=== PATIENT | female | born 1955 | race Caucasian/White ===

== ENCOUNTER 2018-10-08 10:17 | Observation (INO) | payer OTHER ==
[~2018-10-08] VITALS: Ht 170.2 cm; Wt 122.5 kg
[2018-10-08] VITALS (16 sets, daily range): BP systolic 96–153; BP diastolic 54–84
--- NOTE | ~2018-10-08 | D ---
[address] [address] DISCHARGE SUMMARY Name: BRANDON PACHECO Room: [address] Liza Ron#: [id number] Admission: 10/08/18 Attend Phys: Aramis Finnegan MD Discharge: 10/09/18 Date of : 51 Report #: [id number] THIS REPORT FOR: //name// CC: Javed Finnegan DATE OF SERVICE: 10/09/2018 PRIMARY CARE PHYSICIAN: Javed Angel DO. FINAL DIAGNOSES: 1. Unstable angina. 2. Status post percutaneous coronary intervention to left anterior descending coronary artery. 3. Hypertension. 4. Tobacco use. 5. Peripheral vascular disease, status post right CEA. 6. Hyperlipidemia. HOSPITAL SUMMARY: The patient is a very pleasant 63-year-old woman who had been having some chest discomfort. She had numerous cardiovascular risk factors including peripheral vascular disease and prior carotid endarterectomy. Her perfusion stress test was unremarkable, but she had typical angina type symptoms and because of her body habitus, there was concern that it might have been a false negative study. She underwent a diagnostic cardiac catheterization and had isolated single vessel disease with a 70% stenosis in her proximal to mid left anterior descending coronary artery. She tolerated placement of a drug-eluting stent without complication. She had some upper back pain postprocedurally in the morning after her procedure, but no chest discomfort. Her LDL had been elevated in the office and I just switched her to generic Crestor 20 mg daily and this will be followed closely as an outpatient. Her discharge antiplatelet therapy will include aspirin and Brilinta. She will follow up with our office in 3 weeks. PROCEDURE PERFORMED: Diagnostic cardiac catheterization, percutaneous coronary intervention. PERTINENT DISCHARGE LABORATORY: Discharge creatinine is 0.8. Hemoglobin is 11.3, platelet count was 205,000. Sodium 134, potassium 3.9. By: 0912 0041Aramis Finnegan MD, FACC /nt
--- NOTE | ~2018-10-08 | H ---
[address] [address] HISTORY AND PHYSICAL Name: BRANDON PACHECO Room: [address] Liza Ron#: [id number] Admission: 10/08/18 Attend Phys: Aramis Finnegan MD Discharge: 10/09/18 Date of : 51 Report #: [id number] THIS REPORT FOR: //name// Please refer to the History and Physical performed in the physician's office. By: 1519Medical Records Staff FREDDIE /SHENG
[2018-10-08] MEDS ORDERED: LASIX 40 MG TAB40 M2 PO (10:32)
[2018-10-08] MEDS ORDERED: METFORMIN HCL500 MG PO (10:33)
[2018-10-08] MEDS ORDERED: NIFEDIPINE ER30 M1 PO (10:33)
[2018-10-08] MEDS ORDERED: OXYBUTYNIN 5 MG5 M2 PO (10:33)
[2018-10-08] MEDS ORDERED: LISINOPRIL40 MG PO (10:33)
[2018-10-08] MEDS ORDERED: PIOGLITAZONE15 MG PO (10:34)
[2018-10-08] MEDS ORDERED: POTASSIUM20 PO (10:34)
[2018-10-08] MEDS ORDERED: LUNESTA3 MG PO (10:34)
[2018-10-08] MEDS ORDERED: NITROGLYCERIN0.4 MG SUBLING (10:35)
[2018-10-08] MEDS ORDERED: TENORMIN50 MG PO (10:35)
[2018-10-08] MEDS ORDERED: FLEXERIL PO (10:35)
[2018-10-08] MEDS ORDERED: CRESTOR20 MG PO (10:35)
[2018-10-08 11:01] LABS: HEMATOCRIT 40.9 % (37.0-47.0); HEMOGLOBIN 13.7 gm/dL (12.0-15.0); MCH 29.8 pg (26.0-34.0); MCHC 33.5 g/dL (28.0-37.0); MPV 8.6 fl. (7.2-11.1); RBC 4.59 mil/uL (4.20-5.00); RDW-CV 14.2 % (10.5-14.5)
[2018-10-08 11:15] LABS: APTT 25.2 Seconds (25.0-31.3); INR 0.9; PROTIME 9.6 Seconds (9.20-11.50)
[2018-10-08 11:25] LABS: ALBUMIN 3.2 g/dL (3.4-5.0); ALKALINE PHOSPHATASE 117 U/L (46-116); ANION GAP 5 mmol/L (7-16); BUN 13 mg/dL (7-18); CALCIUM 8.8 mg/dL (8.5-10.1); CHLORIDE 100 mmol/L (98-107); CHOLESTEROL 224 mg/dL (<200); CO2 32 mmol/L (21-32); CREATININE 0.7 mg/dL (0.6-1.3); GLUCOSE 250 mg/dL (70-99); HDL CHOLESTEROL 58 mg/dL (>40); LDL CHOLESTEROL 134 mg/dL (<100); POTASSIUM 3.8 mmol/L (3.5-5.1); SGOT 9 U/L (15-37); SGPT 18 U/L (30-65); SODIUM 137 mmol/L (136-145); TC:HDL 3.9 Ratio (Not establshd); TOTAL BILIRUBIN 0.3 mg/dL (<0.1-1.0); TOTAL PROTEIN 7.2 g/dL (6.4-8.2); TRIGLYCERIDE 163 mg/dL (<150); VLDL 33 mg/dL (<40)
[2018-10-08 11:32] LABS: SERUM ASSESSMENT Clear
--- NOTE | 2018-10-08 15:01 | EKG ---
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: : 1955 Requested By: Aramis Finngean Order Number: [id number] Reading MD: Aramis Finnegan Measurements Intervals [place] Rate: 80 P: 18 GA: 162 QRS: 22 QRSD: 90 T: 46 QT: 378 QTc: 436 Interpretive Statements Sinus rhythm Low voltage, precordial leads Abnormal R-wave progression, early transition No previous ECG available for comparison Electronically Signed On 10-08-2018 15:01:16 PHARMACEUTICAL REPRESENTATIVE by Aramis Finnegan [email or web address] <ELECTRONICALLY SIGNED> By: Aramis Finnegan MD, [facility] 10/08/18 1501 1059 1059 Aramis Finnegan MD, FAC /EPI
--- NOTE | 2018-10-08 18:56 | NUR ---
PT TO UNIT AT 1815. A/O, TELE TRACKING NSR AND ALL VSS ON ROOM AIR. RIGHT WRIST, GROIN CDI WITHOUT HEMATOMA. NEUROVASC CHECKS WNL. EDUCATED ON SAFETY AND PLAN OF CARE.
--- NOTE | 2018-10-08 20:30 | NUR ---
PT VERY UPSET WITH RN ASSIGNED FROM 193 TO 2029. RECIEVED REPORT AND ASSUMED CARE OF PT. ASSESSMENT COMPLETED. RT WRIST DRSG DRY AND INTACT. RT GROIN DRSG DRY AND INTACT, NO HEMATOMA OR ECCHYMOSIS. PT REMAINS FLAT IN BED, TELEMETRY ON SHOWING SR. WILL CONT TO MONITOR AND ASSIST NEEDED.
[2018-10-09 04:00] VITALS: BP 121/69
--- NOTE | 2018-10-09 04:21 | NUR ---
ENTERED PT ROOM APPROX 1956. PT ASKED NURSE WHERE IS MY PAIN MEDICINE. NURSE ASKED PT IF SHE WAS IN PAIN AND PT SAID THIS WAS THE WORST SERVICE I EVER HAD. SHE SAID SHE WAS PROMISED HYDROCODONE AND WAS LEFT WITHOUT WATER. PT STATED SHE WANTED TO LEAVE AND GO HOME NOW. REASSURAMCE ATTEMPTED. EMAR CHECKED TYLENOL WAS THE ONLY PAIN MED ORDERED. CARDIOLOGY NOTIFIED FOR HYDROCODONE. WATER BROUGHT TO PT. THEN DAUGHTER WAS IN ROOM STATING THIS IS THE WORST CARE SHE HAS EVER SEEN. REASSURANCE ATTEMPTED FOR DAUGHTER. DTR INFORMED CARDIOLDOGY NOTIFIED FOR MEDICATION. TYLENOL OFFERED WHILE WAITING. PT AGREED TO TYLENOL BUT CONTINUED TO SAY SHE WANTED TO LEAVE. RN TOLD PT AND DTR THAT SHE WOULD CONTACT HOUSE SUPP. PT ASKED IF IT WOULD TAKE LONG FOR HOUSE SUPP TO SHOW UP. RN REASSURED HOUSE SUP WOULD BE UP RIGHT AWAY UNLESS INVOLEVED WITH AN EMERGENT SITUATION. RN PAGED HOUSE SUPP AT 2006 WITH A REQUEST TO SEE PT LAN. HOUSE SUP CAME WITHIN A FEW MINUTES. TYLENOL BROUGHT TO PT. DAUGHTER STATED NURSE ROLLED EYES AND REQUESTED NURSE LEAVE.
[2018-10-09 05:00] LABS: HEMATOCRIT 33.4 % (37.0-47.0); MCH 30.3 pg (26.0-34.0); MCV 89.3 fL (80.0-100.0); RBC 3.74 mil/uL (4.20-5.00); RDW-CV 14.2 % (10.5-14.5); WBC 8.5 thou/uL (4.0-11.0)
[2018-10-09 05:05] LABS: HEMOGLOBIN 11.3 gm/dL (12.0-15.0)
[2018-10-09 05:17] LABS: ALBUMIN 2.5 g/dL (3.4-5.0); CALCIUM 8.1 mg/dL (8.5-10.1); CREATININE 0.8 mg/dL (0.6-1.3); POTASSIUM 3.9 mmol/L (3.5-5.1); TOTAL BILIRUBIN 0.3 mg/dL (<0.1-1.0); TOTAL PROTEIN 5.6 g/dL (6.4-8.2); TROPONIN-I LEVEL 0.09 ng/mL (<0.06)
--- NOTE | 2018-10-09 06:21 | NUR ---
SLEPT WELL TONIGHT. DAUGHTER STAYING AT BEDSIDE. RT GROIN AND RT WRIST WITHOUT HEMATOMA OR ECCHYMOSIS. PT AWARE OF POTENTIAL COMPLICATIONS SHE IS CHECKING SITES AFTER MOVEMENT IN BED. TELEMETRY CONT TO SHOW SR. BACK PAIN EASED UP WHEN ABLE TO MOVE AND AMBULATE. HS GOALS OF REST AND SAFETY ACHIEVED.
[2018-10-09 08:00] VITALS: BP 114/55
--- NOTE | 2018-10-09 10:51 | NUR ---
RECEIVED REPORT FROM [facility]. ASSUMED CARE OF PT AROUND 0730. PT A&O X4, VSS. OIL PUMP STATION OPERATOR CHIEF IN PLACE TRACING SR. AM ASSESSMENT AND VITALS COMPLETED CHARTED. IV TO R AC INTACT AND INFUSING IVF. PT REPORTED CHEST/BACK PAIN - PO PAIN MEDICATIONS GIVEN WITH RELIEF. PT TO DC AROUND NOON PER ORDERS. FAMILY AT BEDSIDE. PT TOLERATING DIET. PT LOOKING FORWARD TO GOING HOME. ALL NEEDS MET AT THIS TIME. FALL PRECAUTIONS IN PLACE. CALL LIGHT IS WITHIN REACH. HOURLY ROUNDING PERFORMED. WCTM.
[2018-10-09] MEDS ORDERED: BRILINTA90 MG PO (11:16)
[2018-10-09] MEDS ORDERED: CHILDREN'S ASPI81 M1 PO (11:16)
[2018-10-09] MEDS ORDERED: NITROSTAT0.4 M1 SUBLING (11:20)
[2018-10-09 11:29] VITALS: BP 126/84
[2018-10-09 11:33] VITALS: BP 126/84
[2018-10-09 11:44] VITALS: BP 126/84
[2018-10-09 11:52] VITALS: BP 126/84
--- NOTE | 2018-10-09 12:20 | NUR ---
VSS. DISCHARGE ORDERS RECEIVED. DISCHARGE COMPLETED DOCUMENTED. DISCHARGE SUMMARY, CARE NOTES AND SCRIPTS GONE OVER WITH PT, PT COMMUNICATES UNDERSTANDING. CARE NOTES GIVEN. SCRIPTS GIVEN. IV AND FOOT MITER OPERATOR REMOVED. ALL BELONGINGS GATHERED AND SENT HOME WITH THE PT. PT AWARE OF FOLLOW UP APPOINTMENTS. PT LEFT UNIT IN WC WITH NURSING STAFF. PT LEFT HOSPITAL IN CAR WITH CHILD.
--- NOTE | 2018-10-10 13:43 | CARD ---
[address] [address] CARDIAC CATH REPORT Name: BRANDON PACHECO Room: [address] Liza Ron#: [id number] Admission: 10/08/18 Attend Phys: Aramis Finnegan MD Discharge: 10/09/18 Date of : 51 Report #: [id number] THIS REPORT FOR: //name// APPROVED REPORT Study performed: 10/08/2018 12:56:21 Patient Details Patient Status: Out-Patient Room #: The patient is a 63 year-old female Event Personnel Aramis Finnegan Stars Coordinator, Jacqueline Razo RN Fiction And Nonfiction Author, Misti Hightower, Lorraine Hamilton RTR Scrub, Matthew Cummins Warehouse Stocker Procedures Performed Art Access - R femoral artery* , Selective Right and Left Coronary AngiographyLeft Heart Cath w/or w/o Coronaries [id number] [facility] , Left VentriculogramDES Place w/wo Plasty Single LAD [id number] Indication Unstable angina Risk Factors Hypercholesterolemia, Hypertension Admission/Lab Medications/Medications given during procedure Aspirin, Platelet Aff. Inhib., Angiomax bolus and infusion Procedure Narrative The patient was brought electively to the Cardiac Catheterization Laboratory and was prepped and draped in a sterile manner. The right femoral was infiltrated with 2% Lidocaine subcutaneous anesthesia. A 6fr Ultimum Sheath sheath was inserted into the right femoral artery. Coronary angiography was performed using coronary diagnostic catheters. The right coronary system was accessed and visualized with a DCR: [place] 4.0 5fr catheter. The left coronary system was accessed and visualized with a JL4 5fr catheter. The left ventricle was accessed and visualized with a PC: Ang[place] 5fr catheter. Left ventricular/Aortic Valve gradient assessed via catheter pullback. Left ventriculogram was performed in PARIKH projection. Pre-demployment femoral angiogram was performed . Hemostasis was obtained with manual pressure following sheath removal [place] [address] CARDIAC CATH REPORT Name: BRANDON PACHECO Room: [address] M.R.#: [id number] Admission: 10/08/18 Attend Phys: Aramis Finnegan MD Discharge: 10/09/18 Date of : 51 Report #: [id number] was no hematoma. Sheath Sutured, will pull after two hours in the holding area. Intraoperative Conscious Sedation Sedation start time: 13:30 Case end Time: 14:53 Fentanyl 100 mcg Versed 4 mg Fluoro Time: 26.4 minutes Dose: DAP 152301 cGycm2 3573.65 mGy Contrast Type and Amount: Visipaque 340 ml Coronary Angiography The patient's coronary anatomy is right dominant. Diagnostic Cath Left Main 0% narrowing LAD 80% focal mid LAD stenosis Circumflex 30% mid circumflex narrowing Right Coronary 0% narrowing Left Ventriculography The left ventricle is normal in size with normal contractility. The left ventricular ejection fraction is estimated to be 65%. Left ventricular wall motion abnormalities are not present. There is no mitral insufficiency. Hemodynamics The aortic pressure is 103/60 mmHg with a mean of mmHg. The left ventricular pressure is 120/5 mmHg with a mean of mmHg. The left ventricular end diastolic pressure is 14 mmHg. There was no gradient across the aortic valve upon pullback. Pullback from the left ventricle to the aorta revealed no gradient across the aortic valve. PCI Technique Lesion Anticoagulation was achieved with Angiomax. Patient was preloaded with Angiomax IV 18 mg per kg. Percutaneous coronary intervention was performed on the mid left anterior descending artery segment. The lesion stenosis prior to intervention was 80% with NANCI 3 flow. A 6F XB LAD 3.5 Guide Catheter was used to engage the LCA ostium. A IG: BMW 190cm Interventional Guidewire was used to cross the lesion. STENT DEPLOYMENT A drug-eluting stent Xience Fozia 2.5X12mm [place] [address] CARDIAC CATH REPORT Name: BRANDON PACHECO Room: [address] Liza M.R.#: [id number] Admission: 10/08/18 Attend Phys: Aramis Finnegan MD Discharge: 10/09/18 Date of : 51 Report #: [id number] up to 10.00atm for 14seconds. Additional Inflation: 14.00atm for 15seconds. Additional Inflation: 15.00atm for 12seconds. Final angiography reveals 10 % stenosis with NANCI 3 flow. Conclusion #1 significant single-vessel coronary artery disease characterized by the following A 80% focal mid LAD stenosis B 30% mid circumflex proximal narrowing, this being a nondominant vessel #2 normal left ventricular systolic function, estimated ejection fraction 65% #3 normal left-sided hemodynamic study #4 successful percutaneous coronary intervention with deployment of drug-eluting stent at site of 80% mid LAD stenosis with 10% residual narrowing and NANCI-3 flow the distal vessel Recommendations Cardiac Risk Reduction Program Aggressive Medical Therapy Medications Administered Aspirin (any) Prasugrel Diagnostic Cath Approved by: Aramis Finnegan MD Date/Time: 10/10/2018 13:42:59 <ELECTRONICALLY SIGNED> By: Matthew Cummins MD, FACC 10/10/18 1343 1343 1343Matthew Cummins MD, FACC /INF
--- NOTE | 2018-10-11 14:51 | EKG ---
[place] [address] ELECTROCARDIOGRAM REPORT Name: BRANDON PACHECO Room: [address] MR.#: [id number] Admission: 10/08/18 Attend Phys: Aramis Finnegan MD Discharge: 10/09/18 Date of : 51 Report #: [id number] THIS REPORT FOR: //name// [facility] Test Date: 2018-10-08 Test Time: 16:07:54 Pat Name: BRANDON PACHECO Department: Room: [facility] Gender: F Crystal Finisher: : 1955 Requested By: Matthew Cummins Order Number: [id number] Dea MD: Rocky San Measurements Intervals [place] Rate: 81 P: 19 NM: 161 QRS: 18 QRSD: 91 T: 42 QT: 380 QTc: 441 Interpretive Statements Sinus rhythm Compared to ECG 10/08/2018 10:59:51 no significant changes noted Electronically Signed On 10-11-2018 14:50:53 CDT by Rocky San [email or web address] <ELECTRONICALLY SIGNED> By: Rocky San MD, [facility] 10/11/18 1450 1607 1607 Rocky San MD, FACC /EPI
--- NOTE | 2018-10-11 14:53 | EKG ---
[place] [address] ELECTROCARDIOGRAM REPORT Name: BRANDON PACHECO Room: [address] M.R.#: [id number] Admission: 10/08/18 Attend Phys: Aramis Finnegan MD Discharge: 10/09/18 Date of : 51 Report #: [id number] THIS REPORT FOR: //name// [facility] Test Date: 2018-10-08 Test Time: 21:38:21 Pat Name: BRANDON PACHECO Department: Room: [address] Gender: F Dat Instructor: [facility] : 1955 Requested By: Aramis Finnegan Order Number: [id number] Dea MD: Rocky San Measurements Intervals [place] Rate: 90 P: 28 [place]: 137 QRS: 18 QRSD: 96 T: 24 QT: 368 QTc: 451 Interpretive Statements Sinus rhythm Compared to ECG 10/08/2018 10:59:51 No significant changes Electronically Signed On 10-11-2018 14:53:02 CDT by Rocky San [email or web address] <ELECTRONICALLY SIGNED> By: Rocky San MD, [facility] 10/11/18 1453 37 37 Rocky San MD, [facility] /EPI
--- NOTE | 2018-10-11 14:56 | EKG ---
[place] [address] ELECTROCARDIOGRAM REPORT Name: BRANDON PACHECO Room: [address] MR.#: [id number] Admission: 10/08/18 Attend Phys: Aramis Finnegan MD Discharge: 10/09/18 Date of : 51 Report #: [id number] THIS REPORT FOR: //name// [facility] Test Date: 2018-10-09 Test Time: 07:55:01 Pat Name: BRANDON PACHECO Department: Room: [facility] Gender: F Fur Repairer: : 1955 Requested By: Matthew Cummins Order Number: [id number] Dea MD: Rocky San Measurements Intervals [place] Rate: 78 P: 22 [place]: 148 QRS: 27 QRSD: 96 T: 52 QT: 385 QTc: 439 Interpretive Statements Sinus rhythm Compared to ECG 10/08/2018 10:59:51 No significant changes Electronically Signed On 10-11-2018 14:55:51 CDT by Rocky San [email or web address] <ELECTRONICALLY SIGNED> By: Rocky San MD, [facility] 10/11/18 1455 0755 0755 Rocky San MD, FACC /EPI
== END 2018-10-09 12:22 | disposition home or self-care (01) ==
LOC: M.CL 10:17 → M.TBA-CV 15:08 → M.2W 18:15
PROVIDERS: Internal Medicine; ADMIT Internal Medicine Cardiovascular Disease
DX: I25.110 Atherosclerotic heart disease of native coronary artery with unstable angina pectoris (principal); I10 Essential (primary) hypertension; I73.9 Peripheral vascular disease, unspecified; E78.5 Hyperlipidemia, unspecified; E78.00 Pure hypercholesterolemia, unspecified; Z72.0 Tobacco use; Z79.82 Long term (current) use of aspirin